=== PATIENT | male | born 2000 | race African-American/Black ===

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

== ENCOUNTER 2020-12-17 22:59 | Emergency (ER) | payer MEDICAID ==
[~2020-12-17] VITALS: Ht 190.5 cm; Wt 77.0 kg
[2020-12-17 23:08] VITALS: BP 132/78
== END 2020-12-18 00:02 | disposition left against medical advice (07) ==
LOC: ER 22:59
DX: Z53.21 Procedure and treatment not carried out due to patient leaving prior to being seen by health care provider (principal)